=== PATIENT | female | born 1935 | race Caucasian/White ===

== ENCOUNTER 2021-12-16 14:23 | Inpatient (IN) | payer MEDICARE ==
[~2021-12-16] VITALS: Ht 167.6 cm; Wt 107.0 kg
[2021-12-16 14:52] LABS: BASOPHILS # (AUTO) 0.1 (0.0-0.1); BASOPHILS % 0.4 % (0.0-1.0); EOSINOPHILS # (AUTO) 0.3 (0.0-0.4); HEMATOCRIT 40.3 % (34.2-44.1); HEMOGLOBIN 12.9 g/dL (12.0-16.0); LYMPHOCYTES # (AUTO) 5.2 (1.0-3.2); LYMPHOCYTES % 31.9 % (18.0-39.1); MEAN CORPUSCULAR HEMOGLOBIN 31.9 pg (28-32); MEAN CORPUSCULAR VOLUME 99.5 fL (81-99); MONOCYTES # (AUTO) 1.1 (0.2-0.8); MONOCYTES % 6.5 % (4.4-11.3); NEUTROPHILS # (AUTO) 9.5 (2.1-6.9); NEUTROPHILS % 58.4 % (38.7-80.0); PLATELET COUNT 351 x10e3/uL (140-360); RED BLOOD COUNT 4.05 x10e6/uL (3.6-5.1); RED CELL DISTRIBUTION WIDTH 14.4 % (11.7-14.4)
[2021-12-16 15:19] LABS: ALANINE AMINOTRANSFERASE 13 IU/L (0-55); ALBUMIN/GLOBULIN RATIO 0.6 (0.8-2.0); ALKALINE PHOSPHATASE 68 IU/L (40-150); ANION GAP 14.8 mmol/L (8-16); BLOOD UREA NITROGEN 16 mg/dL (7-26); BUN/CREATININE RATIO 18 (6-25); CALCIUM 8.5 mg/dL (8.4-10.2); CARBON DIOXIDE 23 mmol/L (22-29); CHLORIDE 103 mmol/L (98-107); CREATINE KINASE 39 IU/L (29-168); CREATININE, SERUM 0.88 mg/dL (0.57-1.11); EST GLOMERULAR FILTRATION RATE 61 ML/MIN (60-); GLUCOSE 104 mg/dL (74-118); POTASSIUM 4.8 mmol/L (3.5-5.1); SODIUM 136 mmol/L (136-145)
[2021-12-16 17:16] LABS: CLARITY,URINE CLEAR (CLEAR); COLOR,URINE YELLOW (YELLOW); KETONES,URINE NEGATIVE (NEGATIVE); LEUKOCYTE ESTERASE ,URINE NEGATIVE (NEGATIVE); NITRITE,URINE NEGATIVE (NEGATIVE); PROTEIN,URINE DIPSTICK NEGATIVE (NEGATIVE); URINE UROBILINOGEN 0.2 mg/dL (0.2 - 1)
[2021-12-16 17:28] LABS: RBC,URINE 0-5 /HPF (0-5); WBC,URINE (MAN) 0-5 /HPF (0-5)
[2021-12-16] MEDS ORDERED: ONDANSETRON HCL INJ 2MG/ML 2ML 2 MG/ML VIAL IV PRN (17:30)
[2021-12-16] MEDS: Vancomycin IV 1 GM in SODIUM CHLORIDE 0.9% 250ML 250 ML IV SCH (17:47)
[2021-12-16 23:23] VITALS: BP 149/90
[2021-12-16 23:55] VITALS: BP 149/90
[2021-12-17] VITALS (7 sets, daily range): BP systolic 103–170; BP diastolic 69–100
[2021-12-17] MEDS ORDERED: SODIUM CHLORIDE 0.9% 250ML 250 ML ONE (00:24)
[2021-12-17 06:09] LABS: BASOPHILS # (AUTO) 0.1 (0.0-0.1); BASOPHILS % 0.7 % (0.0-1.0); EOSINOPHILS # (AUTO) 0.4 (0.0-0.4); EOSINOPHILS % 2.6 % (0.0-6.0); HEMATOCRIT 39.1 % (34.2-44.1); HEMOGLOBIN 11.8 g/dL (12.0-16.0); LYMPHOCYTES # (AUTO) 4.3 (1.0-3.2); LYMPHOCYTES % 31.3 % (18.0-39.1); MEAN CORPUSCULAR HEMOGLOBIN 30.9 pg (28-32); MEAN CORPUSCULAR HGB CONC 30.2 g/dL (31-35); MEAN CORPUSCULAR VOLUME 102.4 fL (81-99); MONOCYTES % 7.3 % (4.4-11.3); NEUTROPHILS # (AUTO) 7.9 (2.1-6.9); PLATELET COUNT 302 x10e3/uL (140-360); RED BLOOD COUNT 3.82 x10e6/uL (3.6-5.1); RED CELL DISTRIBUTION WIDTH 14.1 % (11.7-14.4)
[2021-12-17 06:30] LABS: ALBUMIN 2.9 g/dL (3.5-5.0); ALBUMIN/GLOBULIN RATIO 0.7 (0.8-2.0); ANION GAP 11.6 mmol/L (8-16); CALCIUM 8.6 mg/dL (8.4-10.2); CREATININE, SERUM 0.87 mg/dL (0.57-1.11); POTASSIUM 4.6 mmol/L (3.5-5.1)
[2021-12-17] MEDS: Vancomycin IV 1 GM in SODIUM CHLORIDE 0.9% 250ML 250 ML IV SCH ×2 (10:00→21:12)
[2021-12-17] MEDS ORDERED: ACETAMINOPHEN 325 MG TAB PO PRN (14:00)
[2021-12-17] MEDS ORDERED: METOPROLOL SUCC50 MG PO (14:04)
[2021-12-17] MEDS ORDERED: LOSARTAN POTASS25 MG PO (14:04)
[2021-12-17] MEDS ORDERED: GABAPENTIN100 MG PO (14:04)
[2021-12-17] MEDS ORDERED: LEVOTHYROXINE75 MCG PO (14:04)
[2021-12-17] MEDS ORDERED: CALCIUM600 MG PO (14:04)
[2021-12-17] MEDS ORDERED: B12 ACTIVE1000 MCG PO (14:04)
[2021-12-17] MEDS ORDERED: B-121000 MCG PO (14:10)
[2021-12-17] MEDS ORDERED: VITAMIN D325 MCG PO (14:13)
[2021-12-17] MEDS ORDERED: NEXIUM 24HR20 MG PO (14:13)
[2021-12-17] MEDS ORDERED: AMITRIPTYLINE H10 MG PO (14:15)
[2021-12-17] MEDS ORDERED: MELATONIN 5 MG TABLET PO SCH (21:00)
[2021-12-18] VITALS: BP 131/62
[2021-12-18 04:00] VITALS: BP 153/73
[2021-12-18 05:56] LABS: BASOPHILS # (AUTO) 0.1 (0.0-0.1); BASOPHILS % 0.5 % (0.0-1.0); EOSINOPHILS # (AUTO) 0.3 (0.0-0.4); EOSINOPHILS % 2.8 % (0.0-6.0); HEMATOCRIT 38.2 % (34.2-44.1); HEMOGLOBIN 12.1 g/dL (12.0-16.0); LYMPHOCYTES # (AUTO) 3.6 (1.0-3.2); MEAN CORPUSCULAR HEMOGLOBIN 31.5 pg (28-32); MEAN CORPUSCULAR HGB CONC 31.7 g/dL (31-35); MEAN CORPUSCULAR VOLUME 99.5 fL (81-99); MONOCYTES % 7.8 % (4.4-11.3); NEUTROPHILS # (AUTO) 7.3 (2.1-6.9); PLATELET COUNT 277 x10e3/uL (140-360); RED BLOOD COUNT 3.84 x10e6/uL (3.6-5.1); RED CELL DISTRIBUTION WIDTH 14.1 % (11.7-14.4)
[2021-12-18] MEDS ORDERED: LEVOTHYROXINE SODIUM 75 MCG TAB PO SCH (06:00)
[2021-12-18 08:23] VITALS: BP 134/56
[2021-12-18 09:00] VITALS: BP 134/56
[2021-12-18] MEDS: Vancomycin IV 1 GM in SODIUM CHLORIDE 0.9% 250ML 250 ML IV SCH (09:00)
[2021-12-18] MEDS ORDERED: METOPROLOL SUCCINATE 50 MG TAB XL PO SCH (09:00)
[2021-12-18 12:20] VITALS: BP 141/62
[2021-12-18 16:00] VITALS: BP 130/82
== END 2021-12-18 16:49 | disposition home or self-care (01) | DRG 816 ==
LOC: ER 15:24 → ERHOLD 17:24 → MED/SURG3 21:39
PROVIDERS: ADMIT Internal Medicine; ATTEND Internal Medicine
DX: D72.829 Elevated white blood cell count, unspecified (principal); M79.89 Other specified soft tissue disorders; I11.0 Hypertensive heart disease with heart failure; I50.9 Heart failure, unspecified; T38.0X5A Adverse effect of glucocorticoids and synthetic analogues, initial encounter; K21.9 Gastro-esophageal reflux disease without esophagitis; E03.9 Hypothyroidism, unspecified; I25.10 Atherosclerotic heart disease of native coronary artery without angina pectoris; E66.9 Obesity, unspecified; Z68.38 Body mass index [BMI] 38.0-38.9, adult; Z90.49 Acquired absence of other specified parts of digestive tract; Z20.822 Contact with and (suspected) exposure to COVID-19
CPT/HCPCS: 36415; 51700; 71045; 76700; 80053; 80202; 81001; 82550; 82553; 83605; 83880; 84484; 85025; 87040; 94799; 99284; J2543; J3370; J7050; U0002

== ENCOUNTER → 2024-05-23 | Outpatient (REF) | payer MEDICARE ==
[~2024-05-23] MED LIST: AMITRIPTYLINE H10 MG PO; B-121000 MCG PO; B12 ACTIVE1000 MCG PO; CALCIUM600 MG PO; GABAPENTIN100 MG PO; LEVOTHYROXINE75 MCG PO; LOSARTAN POTASS25 MG PO; METOPROLOL SUCC50 MG PO; NEXIUM 24HR20 MG PO; VITAMIN D325 MCG PO
== END ==
LOC: RAD 13:38
PROVIDERS: ATTEND Family Medicine
DX: J18.9 Pneumonia, unspecified organism (principal)
CPT/HCPCS: 71046

== ENCOUNTER 2025-02-03 08:11 | Inpatient (IN) | payer MEDICARE ==
[~2025-02-03] VITALS: Ht 165.1 cm; Wt 109.3 kg
[2025-02-03] VITALS (8 sets, daily range): BP systolic 131–133; BP diastolic 65–100; PULSE 66–74; RESP 17–18; TEMP 97.4–98.3; O2SAT 95–97
[2025-02-03 09:49] LABS: BASOPHILS % 0.3 % (0.0-1.0); EOSINOPHILS % 0.7 % (0.0-6.0); LYMPHOCYTES % 12.8 % (18.0-39.1); MONOCYTES % 8.3 % (4.4-11.3); NEUTROPHILS % 76.5 % (38.7-80.0); RED CELL DISTRIBUTION WIDTH 15.3 % (11.7-14.4)
[2025-02-03] MEDS: KETOROLAC TROMETHAMINE 30 MG/ML VIAL IV STA (10:13)
[2025-02-03 10:16] LABS: EST GLOMERULAR FILTRATION RATE 55.0 ML/MIN (>=60)
[2025-02-03] MEDS ORDERED: IOPAMIDOL 370 MG/ML 100 ML INFUS..BTL INJ ONE (11:06)
[2025-02-03 12:04] LABS: EOSINOPHILS % (MANUAL) 2 % (0-7); LYMPHOCYTES % (MANUAL) 10 % (19-48); MONOCYTES % (MANUAL) 9 % (3.4-9.0); NEUTROPHILS % (MANUAL) 79 % (40-74)
[2025-02-03 12:05] LABS: PLATELET ESTIMATE ADEQUATE; PLATELET MORPHOLOGY COMMENT NORMAL
[2025-02-03] MEDS: CLINDAMYCIN 600MG / 50ML 50 ML IV ONE (12:08)
[2025-02-03] MEDS ORDERED: BENZONATATE200 MG PO (15:21)
[2025-02-03] MEDS: KETOROLAC TROMETHAMINE 30 MG/ML VIAL IV ONE (16:08)
[2025-02-03] MEDS: ACETAMINOPHEN 325 MG TAB PO PRN (16:08)
[2025-02-03] MEDS ORDERED: KETOROLAC TROMETHAMINE 30 MG/ML VIAL IV PRN (19:15)
[2025-02-03] MEDS: METOPROLOL SUCCINATE 50 MG TAB XL PO SCH (21:24)
[2025-02-03] MEDS: AMITRIPTYLINE HCL 25 MG TAB PO SCH (21:24)
[2025-02-03] MEDS ORDERED: POLYETHYLENE GLYCOL 3350 17 GM PACK PO PRN (23:00)
[2025-02-03] MEDS ORDERED: ONDANSETRON HCL INJ 2MG/ML 2ML 2 MG/ML VIAL IV PRN (23:00)
[2025-02-03] MEDS ORDERED: Morphine 2mg Syringe 2 MG/ML SYR IV PRN (23:00)
[2025-02-03] MEDS ORDERED: BISACODYL 10 MG SUPP PR PRN (23:00)
[2025-02-03] MEDS ORDERED: HYDRALAZINE HCL 20 MG/ML VIAL IV PRN (23:00)
[2025-02-04] VITALS (7 sets, daily range): BP systolic 122–156; BP diastolic 56–71; PULSE 62–74; RESP 16–20; TEMP 97.6–98.5; O2SAT 96–100
[2025-02-04] MEDS: HYDROCODONE/APAP 5MG-325MG TAB PO PRN (03:04)
[2025-02-04 05:55] LABS: BASOPHILS % 0.2 % (0.0-1.0); EOSINOPHILS % 1.3 % (0.0-6.0); LYMPHOCYTES % 15.2 % (18.0-39.1); MONOCYTES % 6.9 % (4.4-11.3); NEUTROPHILS % 75.3 % (38.7-80.0); RED CELL DISTRIBUTION WIDTH 15.5 % (11.7-14.4)
[2025-02-04 06:34] LABS: EST GLOMERULAR FILTRATION RATE 50.0 ML/MIN (>=60)
[2025-02-04] MEDS: DOCUSATE SODIUM 100 MG CAP PO SCH (08:44)
[2025-02-04] MEDS: LEVOTHYROXINE SODIUM 75 MCG TAB PO SCH (08:45)
[2025-02-04] MEDS: PANTOPRAZOLE SOD 40 MG TABEC PO SCH (08:45)
[2025-02-04] MEDS: LOSARTAN POTASSIUM 25 MG TAB PO SCH (08:46)
[2025-02-04] MEDS: SENNOSIDES 8.6 MG TAB PO SCH (09:36)
[2025-02-04 09:49] LABS: % IRON SATURATION 8.0 % (15-50)
[2025-02-04 10:36] LABS: EOSINOPHILS % (MANUAL) 2 % (0-7); LYMPHOCYTES % (MANUAL) 15 % (19-48); MONOCYTES % (MANUAL) 7 % (3.4-9.0); NEUTROPHILS % (MANUAL) 76 % (40-74); PLATELET ESTIMATE ADEQUATE; PLATELET MORPHOLOGY COMMENT NORMAL; RBC MORPHOLOGY COMMENT NORMAL
[2025-02-04] MEDS: ENOXAPARIN SOD INJ 40 MG/0.4 ML SYR SC SCH (16:57)
[2025-02-04] MEDS: FLUTICASONE PROPIONATE NASAL SPRAY NS SCH (17:23)
[2025-02-05] VITALS (7 sets, daily range): BP systolic 105–156; BP diastolic 55–76; PULSE 64–68; RESP 16–20; TEMP 97.1–98.2; O2SAT 95–100
[2025-02-05 06:29] LABS: BASOPHILS % 0.5 % (0.0-1.0); EOSINOPHILS % 3.2 % (0.0-6.0); LYMPHOCYTES % 24.8 % (18.0-39.1); MONOCYTES % 6.9 % (4.4-11.3); NEUTROPHILS % 63.6 % (38.7-80.0); RED CELL DISTRIBUTION WIDTH 15.6 % (11.7-14.4)
[2025-02-05 06:41] LABS: EST GLOMERULAR FILTRATION RATE 64.0 ML/MIN (>=60)
[2025-02-06 00:11] VITALS: BP 133/56; PULSE 62; RESP 20; TEMP 97.7; O2SAT 98
[2025-02-06 04:41] VITALS: BP 105/61; PULSE 68; RESP 16; TEMP 97.5; O2SAT 100
[2025-02-06 07:22] LABS: BASOPHILS % 0.4 % (0.0-1.0); EOSINOPHILS % 4.3 % (0.0-6.0); LYMPHOCYTES % 34.4 % (18.0-39.1); MONOCYTES % 6.0 % (4.4-11.3); NEUTROPHILS % 53.2 % (38.7-80.0); RED CELL DISTRIBUTION WIDTH 15.5 % (11.7-14.4)
[2025-02-06 07:39] LABS: EST GLOMERULAR FILTRATION RATE 65.0 ML/MIN (>=60)
[2025-02-06 07:55] VITALS: BP 140/68; PULSE 65; RESP 18; TEMP 97.5; O2SAT 99
[2025-02-06 08:30] VITALS: BP 140/68; PULSE 65; RESP 18; TEMP 97.5; O2SAT 99
[2025-02-06] MEDS: BENZONATATE 100 MG CAP PO PRN (10:46)
[2025-02-06 12:00] VITALS: BP 148/82; PULSE 71; RESP 18; TEMP 97.7; O2SAT 98
[2025-02-06] MEDS ORDERED: AMOX TR-K CLV1 EAC2 PO (13:50)
[2025-02-06] MEDS ORDERED: KETOROLAC TROME10 MG PO (13:50)
== END 2025-02-06 15:15 | disposition home or self-care (01) | DRG 155 ==
LOC: ER 08:58 → ERHOLD 14:02 → MED/SURG3 14:52
PROVIDERS: ADMIT Internal Medicine; ATTEND Internal Medicine
DX: K11.23 Chronic sialoadenitis (principal); Z68.41 Body mass index [BMI] 40.0-44.9, adult; E66.01 Morbid (severe) obesity due to excess calories; I11.0 Hypertensive heart disease with heart failure; I50.9 Heart failure, unspecified; E78.2 Mixed hyperlipidemia; E03.9 Hypothyroidism, unspecified; D63.8 Anemia in other chronic diseases classified elsewhere; I25.10 Atherosclerotic heart disease of native coronary artery without angina pectoris; K21.9 Gastro-esophageal reflux disease without esophagitis; R09.82 Postnasal drip; Z79.890 Hormone replacement therapy; Z90.710 Acquired absence of both cervix and uterus
CPT/HCPCS: 36415; 70487; 71045; 80053; 82607; 82728; 82746; 82948; 83540; 83735; 84466; 85025; 87040; 94799; 99252; 99284; J0295; J1650; J1885; J2470; J7050; Q9967